=== PATIENT | male | born 1970 | race Caucasian/White ===

== ENCOUNTER 2022-03-17 13:31 | Observation (INO) ==
[2022-03-17] MEDS ORDERED: Isovue-370 500 ML BOTTLE IVP ONE (13:53)
[2022-03-17 14:16] LABS: Bilirubin,Urine Negative (Negative); Blood,Urine Trace (Negative); Clarity,Urine Clear (Clear); Color,Urine Colorless (Yellow); Glucose,Urine (UA) Normal (Normal); Ketones,Urine Negative (Negative); Leukocyte Esterase,Urine Negative (Negative); Mucus,Urine Few per lpf (None-Few); Nitrite,Urine Negative (Negative); Protein,Urine Negative (Neg-Trace); RBC,Urine 0-3 per hpf (0-3); Specific Gravity,Urine 1.005 (1.010-1.025); Urobilinogen,Urine Normal (Normal)
[2022-03-17 14:26] LABS: Basophils % 0.3 %; Eosinophils # 0.1 K/mcL (0.0-0.6); Eosinophils % 0.8 %; Hematocrit 49.5 % (37.5-50.1); Hemoglobin 16.9 g/dL (12.9-16.9); Immature Granulocytes % 0.3 % (0-4); Lymphocytes # 1.6 K/mcL (0.6-4.6); Lymphocytes % 20.9 %; Mean Corpuscular HGB Conc 34.1 g/dL (31.6-35.5); Mean Corpuscular Hemoglobin 30.6 pg (28.0-33.3); Mean Corpuscular Volume 89.7 fL (83.0-100.0); Mean Platelet Volume 9.4 fL (9.4-12.4); Monocytes # 0.7 K/mcL (0.0-1.3); Monocytes % 9.1 %; Neutrophils # 5.2 K/mcL (1.6-8.9); Platelet Count 275 K/mcL (140-400); Red Blood Count 5.52 M/mcL (4.19-5.50); Red Cell Distribution Width 12.2 % (11.5-14.5); Segmented Neutrophils % 68.6 %; White Blood Count 7.6 K/mcL (4.3-11.1)
[2022-03-17] MEDS ORDERED: 0.9 % Sodium Chloride 1,000 ML IVC ONE (15:00)
[2022-03-17] MEDS ORDERED: Piperacillin/Tazobactam 3.375 GM in 0.9 % Sodium Chloride Mini Bag 100 ML IVPB ONE (15:00)
[2022-03-17 15:02] LABS: BUN/Creatinine Ratio 10 (6-26); Blood Urea Nitrogen 9 mg/dL (6-20); Calcium 9.1 mg/dL (8.6-10.3); Carbon Dioxide 26 mEq/L (23-29); Chloride 106 mEq/L (98-107); Glucose 95 mg/dL (70-105); Osmolality,Calculated 286 (280-300); Potassium 3.6 mEq/L (3.5-5.1); Sodium 139 mEq/L (136-145); eGFR For African Americans > 60 (> 60); eGFR For Non-African Americans > 60 (> 60)
[2022-03-17] MEDS ORDERED: Ondansetron 4 MG/2 ML VIAL IVP PRN (16:40)
[2022-03-17] MEDS ORDERED: Ibuprofen 600 MG TABLET PO PRN (16:40)
[2022-03-17] MEDS ORDERED: Acetaminophen 325 MG TABLET PO PRN (16:43)
[2022-03-17] MEDS ORDERED: *HR* OxyCODONE Immed Rel 5 MG TABLET PO PRN ×2 (16:43)
[2022-03-17] MEDS ORDERED: Ringers Solution, Lactated 1,000 ML IVC SCH (16:45)
[2022-03-17] MEDS ORDERED: *HR* Propofol 200 MG/20 ML VIAL IVP ONE (17:06)
[2022-03-17] MEDS ORDERED: Ondansetron 4 MG/2 ML VIAL ONE (17:07)
[2022-03-17] MEDS ORDERED: *HR* Rocuronium Bromide 50 MG/5 ML VIAL ONE (17:07)
[2022-03-17] MEDS ORDERED: *HR* FentaNYL (PF) 100 MCG/2 ML VIAL ONE ×2 (17:07→18:20)
[2022-03-17] MEDS ORDERED: Lidocaine HCL 4 ML Topical Solution (Laryng-O-Jet Kit Sterile Pak) TP ONE (17:07)
[2022-03-17] MEDS ORDERED: Lidocaine -MPF 2% 2 ML VIAL ONE (17:07)
[2022-03-17] MEDS ORDERED: *HR* Midazolam HCl 2 MG/2 ML VIAL ONE (17:07)
[2022-03-17] MEDS ORDERED: Promethazine 6.25 MG in Water for inj. (sterile) 20 ML IVPB PRN (17:09)
[2022-03-17] MEDS ORDERED: *HR* HYDROmorphone PF 0.5 MG/0.5 ML SYRINGE IVP PRN (17:09)
[2022-03-17] MEDS ORDERED: *HR* Meperidine 25 MG/ML SYRINGE IVP PRN (17:09)
[2022-03-17] MEDS ORDERED: Albuterol 2.5 MG/3 ML NEBULIZER IH PRN (17:09)
[2022-03-17] MEDS ORDERED: Scopolamine Patch 1.5 MG PATCH.TD72 ONE (17:31)
[2022-03-17] MEDS ORDERED: Lidocaine/EPI 1:100k 1% 30 ML VIAL ONE (17:39)
[2022-03-17] MEDS ORDERED: Bupivacaine-MPF 0.25% 10 ML VIAL ONE (17:39)
[2022-03-17] MEDS ORDERED: Acetaminophen IV 1,000 MG/100 ML BAG IVPB ONE (18:35)
[2022-03-17] MEDS ORDERED: Sugammadex Sodium 200 MG/2 ML VIAL IV ONE (18:39)
[2022-03-17] MEDS ORDERED: Ketorolac 30 MG/ML VIAL ONE (18:43)
[2022-03-17] MEDS ORDERED: *HR* HYDROMORPHONE 2 MG/ML VIAL ONE (18:49)
[2022-03-17] MEDS: Famotidine 20 MG TABLET PO SCH (21:01)
[2022-03-18 07:25] VITALS: BP 100/53; PULSE 50; TEMP 98.2; O2SAT 95
[2022-03-18] MEDS: Famotidine 20 MG TABLET PO SCH (08:13)
[2022-03-18] MEDS ORDERED: Ibuprofen 800 MG TABLET PO ONE (08:39)
== END 2022-03-18 12:53 | disposition home or self-care (01) ==
LOC: EMEROOARM 13:31 → 3ANU 13:31
PROVIDERS: ADMIT Internal Medicine; ATTEND Surgery

== ENCOUNTER 2022-04-27 12:00 | Observation (INO) ==
[2022-04-27] MEDS ORDERED: Lidocaine -MPF 2% 2 ML VIAL ONE (12:14)
[2022-04-27] MEDS ORDERED: *HR* Propofol 200 MG/20 ML VIAL IVP ONE ×3 (12:14→14:07)
[2022-04-27] MEDS ORDERED: Ringers Solution, Lactated 1,000 ML IVC SCH (12:45)
[2022-04-27] MEDS ORDERED: Ondansetron 4 MG/2 ML VIAL ONE (13:14)
[2022-04-27] MEDS ORDERED: Ipratropium/Albuterol Neb 3 ML ONE (13:36)
[2022-04-27] MEDS ORDERED: Naloxone 0.4 MG/ML INJ IVP PRN (15:27)
[2022-04-27] MEDS ORDERED: Ondansetron 4 MG/2 ML VIAL IVP PRN (15:27)
[2022-04-27] MEDS ORDERED: Acetaminophen 325 MG TABLET PO PRN (15:27)
[2022-04-27] MEDS: 0.9 % Sodium Chloride 1,000 ML IVC SCH ×6 (18:17→23:25)
[2022-04-27] MEDS: MethylPREDNISolone 40 MG/ML VIAL IVP SCH (18:17)
[2022-04-27] MEDS: Piperacillin/Tazobactam 3.375 GM in 0.9 % Sodium Chloride Mini Bag 100 ML IVPB SCH ×2 (18:18→23:26)
[2022-04-27] MEDS: Ipratropium/Albuterol Neb 3 ML IH SCH ×2 (18:38→20:36)
[2022-04-27 23:20] LABS: Hematocrit 41.8 % (37.5-50.1); Mean Corpuscular HGB Conc 33.5 g/dL (31.6-35.5); Mean Corpuscular Hemoglobin 30.5 pg (28.0-33.3); Mean Corpuscular Volume 91.1 fL (83.0-100.0); Mean Platelet Volume 9.5 fL (9.4-12.4); Platelet Count 239 K/mcL (140-400); Red Blood Count 4.59 M/mcL (4.19-5.50); Red Cell Distribution Width 12.4 % (11.5-14.5); White Blood Count 16.1 K/mcL (4.3-11.1)
[2022-04-27 23:38] LABS: BUN/Creatinine Ratio 9 (6-26); Blood Urea Nitrogen 10 mg/dL (6-20); Calcium 8.4 mg/dL (8.6-10.3); Carbon Dioxide 20 mEq/L (23-29); Chloride 106 mEq/L (98-107); Glucose 271 mg/dL (70-105); Osmolality,Calculated 289 (280-300); Sodium 135 mEq/L (136-145); eGFR For African Americans > 60 (> 60); eGFR For Non-African Americans > 60 (> 60)
[2022-04-28] MEDS: Ipratropium/Albuterol Neb 3 ML IH SCH ×4 (00:22→11:39)
[2022-04-28 00:38] LABS: Adenovirus Not Detected (Not Detect); Coronavirus 229E Not Detected (Not Detect); Coronavirus HKU1 Not Detected (Not Detect); Coronavirus NL63 Not Detected (Not Detect); Coronavirus OC43 Not Detected (Not Detect)
[2022-04-28 00:39] LABS: Bordetella Pertussis Not Detected (Not Detect); Chlamydophila pneumoniae Not Detected (Not Detect); Human Metapneumovirus Not Detected (Not Detect); Human Rhinovirus/Enterovirus Not Detected (Not Detect); Influenza A Subtype 2009 H1 Not Detected (Not Detect); Influenza B Not Detected (Not Detect); Mycoplasma pneumoniae Not Detected (Not Detect); Parainfluenza Virus 1 Not Detected (Not Detect); Parainfluenza Virus 2 Not Detected (Not Detect); Parainfluenza Virus 3 Not Detected (Not Detect); Parainfluenza Virus 4 Not Detected (Not Detect); Respiratory Syncytial Virus Not Detected (Not Detect); SARS-CoV-2 DETECTED (Not Detect)
[2022-04-28] MEDS ORDERED: Potassium Chloride Elixir 20 MEQ/15 ML UDC PO ONE (04:46)
[2022-04-28 05:15] LABS: Hematocrit 41.9 % (37.5-50.1); Hemoglobin 13.9 g/dL (12.9-16.9); Mean Corpuscular HGB Conc 33.2 g/dL (31.6-35.5); Mean Corpuscular Hemoglobin 30.3 pg (28.0-33.3); Mean Corpuscular Volume 91.3 fL (83.0-100.0); Mean Platelet Volume 9.8 fL (9.4-12.4); Platelet Count 236 K/mcL (140-400); Red Blood Count 4.59 M/mcL (4.19-5.50); Red Cell Distribution Width 12.4 % (11.5-14.5); White Blood Count 14.3 K/mcL (4.3-11.1)
[2022-04-28 05:19] LABS: VBG HCO3 20 mEq/L (21-27); VBG PCO2 33 mmHg (41-51); VBG PH 7.38 pH Units (7.32-7.42); VBG PO2 77 mmHg (25-50)
[2022-04-28 05:44] LABS: Alanine Aminotransferase 14 Units/L (7-52); Albumin 3.2 g/dL (3.5-5.7); Albumin/Globulin Ratio 1.5 (1.1-2.2); Alkaline Phosphatase 67 Units/L (34-104); Aspartate Amino Transferase 13 Units/L (13-39); BUN/Creatinine Ratio 9 (6-26); Bilirubin,Total 1.3 mg/dL (0.3-1.0); Blood Urea Nitrogen 9 mg/dL (6-20); Calcium 8.3 mg/dL (8.6-10.3); Carbon Dioxide 19 mEq/L (23-29); Chloride 109 mEq/L (98-107); Globulin 2.1 g/dL (2.4-3.5); Glucose 192 mg/dL (70-105); Osmolality,Calculated 288 (280-300); Potassium 3.3 mEq/L (3.5-5.1); Sodium 137 mEq/L (136-145); Total Protein 5.3 g/dL (6.4-8.9); eGFR For African Americans > 60 (> 60); eGFR For Non-African Americans > 60 (> 60)
[2022-04-28] MEDS: MethylPREDNISolone 40 MG/ML VIAL IVP SCH (05:45)
[2022-04-28 07:04] VITALS: BP 114/69; PULSE 75; TEMP 97.3
[2022-04-28] MEDS: 0.9 % Sodium Chloride 1,000 ML IVC SCH (07:47)
[2022-04-28] MEDS: Piperacillin/Tazobactam 3.375 GM in 0.9 % Sodium Chloride Mini Bag 100 ML IVPB SCH (07:47)
[2022-04-28 10:17] VITALS: O2SAT 97
[2022-04-29] MEDS ORDERED: dexAMETHasone 4 MG TABLET PO SCH (09:00)
== END 2022-04-28 11:46 | disposition home or self-care (01) ==
LOC: 3BNU 12:00 → ENDPAV 12:00 → 3BNU 15:58
PROVIDERS: ADMIT Internal Medicine; ATTEND Internal Medicine

== ENCOUNTER 2022-08-02 09:23 | Observation (INO) ==
[2022-08-02] MEDS ORDERED: Iopamidol - 370 500 ML MLS IVP ONE (09:44)
[2022-08-02 10:01] LABS: Hematocrit 51.4 % (37.5-50.1); Hemoglobin 17.5 g/dL (12.9-16.9); Mean Corpuscular Hemoglobin 30.5 pg (28.0-33.3); Mean Corpuscular Volume 89.7 fL (83.0-100.0); Mean Platelet Volume 9.6 fL (9.4-12.4); Platelet Count 238 K/mcL (140-400); Red Blood Count 5.73 M/mcL (4.19-5.50); Red Cell Distribution Width 12.6 % (11.5-14.5); White Blood Count 6.6 K/mcL (4.3-11.1)
[2022-08-02 10:27] LABS: BUN/Creatinine Ratio 14 (6-26); Blood Urea Nitrogen 13 mg/dL (6-20); Carbon Dioxide 23 mEq/L (23-29); Chloride 105 mEq/L (98-107); Glucose 152 mg/dL (70-105); Osmolality,Calculated 285 (280-300); Potassium 3.5 mEq/L (3.5-5.1); Sodium 136 mEq/L (136-145); Troponin I < 0.03 ng/mL (< 0.04)
[2022-08-02] MEDS ORDERED: MOM Conc 10 ML UD.LIQ PO PRN (14:35)
[2022-08-02] MEDS ORDERED: Mag Hydrox/Al Hydrox/Simeth 30 ML UDC PO PRN (14:35)
[2022-08-02] MEDS ORDERED: Naloxone 0.4 MG/ML INJ IVP PRN (14:35)
[2022-08-02] MEDS ORDERED: Melatonin 3 MG TABLET PO PRN (14:35)
[2022-08-02] MEDS ORDERED: Ondansetron ODT 4 MG TAB.RAPDIS SL PRN (14:35)
[2022-08-03 03:31] LABS: Albumin 3.8 g/dL (3.5-5.7); Albumin/Globulin Ratio 1.7 (1.1-2.2); Bilirubin,Total 0.5 mg/dL (0.3-1.0); Calcium 9.2 mg/dL (8.6-10.3); Globulin 2.3 g/dL (2.4-3.5); Potassium 3.8 mEq/L (3.5-5.1); Total Protein 6.1 g/dL (6.4-8.9)
[2022-08-03 04:42] LABS: Estimated Average Glucose 103 mg/dl; Hemoglobin A1C 5.2 %
[2022-08-03] MEDS ORDERED: *HR* Enoxaparin 40 MG/0.4 ML SYRINGE SQ SCH (06:00)
[2022-08-03] MEDS ORDERED: Aspirin Enteric Coated 81 MG Tablet PO SCH (09:00)
[2022-08-03 18:41] VITALS: BP 128/64; PULSE 65; TEMP 98.3; O2SAT 98
== END 2022-08-03 19:45 | disposition home or self-care (01) ==
LOC: EMEROOARM 09:23 → 3BNU 09:23 → SUATTDRO 17:09 → 3BNU 18:09
PROVIDERS: ADMIT Internal Medicine; ATTEND Registered Nurse